=== PATIENT | female | born 1965 | race African-American/Black ===

== ENCOUNTER 2016-12-30 05:54 | Emergency (ER) | payer OTHER ==
[2016-12-30 06:36] LABS: ALT (SGPT) 13 U/L (8-55); AST (SGOT) 15 U/L (5-34); Alkaline Phosphatase 62 U/L (40-150); Anion Gap 14 mmol/L (10-20); BUN (Urea Nitrogen) 9 mg/dL (7.0-18.7); Bilirubin, Total 0.7 mg/dL (0.2-1.2); CK (CPK) 92 U/L (29-168); Calc. Creatinine Clearance 0 mL/min (70-130); Calcium 9.3 mg/dL (7.8-10.44); Carbon Dioxide 26 mmol/L (22-29); Chloride 104 mmol/L (98-107); Estimated GFR-MDRD Greater than 90; Globulin 3.5 g/dL (2.4-3.5); Protein, Total 7.5 g/dL (6.0-8.3)
[2016-12-30 06:37] LABS: Band 1 % (5-11); Hematocrit 43.2 % (36.0-47.0); Neutrophil 60 % (42-75); Reactive Lymphocytes 7 % (0-10); Red Blood Cell (RBC) Count 4.74 mill/uL (4.20-5.40); Troponin I Less than 0.010 ng/mL (< 0.028); White Blood Cell (WBC) Count 10.9 thou/uL (4.8-10.8)
[2016-12-30] MEDS ORDERED: Fentanyl 100 MCG/2 ML VIAL ONE (06:37)
--- NOTE | 2016-12-30 07:36 | ULT ---
EXAM: LEFT UPPER EXTREMITY VENOUS ULTRASOUND: HISTORY: Pain. Swelling. COMPARISON: None. TECHNIQUE: Mccabe scale, color flow, Doppler imaging with spectral waveform analysis performed. FINDINGS: There is patency and flow in the internal jugular vein, subclavian vein. There is compressibility, patency, and flow I the axillary vein, cephalic vein, basilic vein, and brachial vein. There is als o compressibility of the radial and ulnar vein. IMPRESSION: No evidence of thrombus of the left upper extremity deep venous system. POS: [facility]
--- NOTE | 2016-12-30 07:54 | RAD ---
SINGLE VIEW OF THE CHEST: COMPARISON: 05/12/15. HISTORY: Left arm pain and tingling. FINDINGS: Single view of the chest shows a normal sized cardiomediastinal silhouette. There is no evidence of consolidation, mass, or pleural effusion. The bones are unremarkable. IMPRESSION: No evidence of acute cardiopulmonary disease. POS: [facility]
[2016-12-30] MEDS ORDERED: Ketorolac Tromethamine 30 MG/ML VIAL ONE (08:32)
[2016-12-30 09:39] LABS: Troponin I Less than 0.010 ng/mL (< 0.028)
--- NOTE | 2017-02-12 12:08 | EKG ---
Test Reason : Blood Pressure : / mmHG Vent. Rate : 075 BPM Atrial Rate : 075 BPM P-R Int : 154 ms QRS Dur : 080 ms QT Int : 376 ms P-R-T Axes : 059 -14 -04 degrees QTc Int : 419 ms Normal sinus rhythm Normal ECG Confirmed by MARGOTH STREET MD ([id number]), videotape editor JULIA LUU ([id number]) on 02/12/2017 12:08:35 PM Referred By: Confirmed By:MARGOTH STREET MD
--- NOTE | 2017-02-18 12:01 | EKG ---
Test Reason : Blood Pressure : / mmHG Vent. Rate : 102 BPM Atrial Rate : 102 BPM P-R Int : 142 ms QRS Dur : 086 ms QT Int : 326 ms P-R-T Axes : 037 -08 007 degrees QTc Int : 424 ms Sinus tachycardia with occasional Premature ventricular complexes Otherwise normal ECG Confirmed by CALVIN BELTRE ([id number]), editor school photograph JULIA LUU ([id number]) on 02/18/2017 12:01:07 PM Referred By: Confirmed By:CALVIN BELTRE
== END 2016-12-30 10:09 | disposition home or self-care (01) ==
LOC: SCSER 05:54
DX: R07.9 Chest pain, unspecified (principal); M79.602 Pain in left arm; I10 Essential (primary) hypertension; M48.02 Spinal stenosis, cervical region
CPT/HCPCS: 36415; 71010; 80053; 82553; 84484; 85025; 93005; 96374; 96375; J1885; J3010

== ENCOUNTER 2020-01-21 13:42 | Outpatient (CLI) | payer OTHER ==
--- NOTE | 2020-01-21 14:30 | RAD ---
Exam:3 views right shoulder HISTORY: Pain x1 month COMPARISON: None FINDINGS: Glenohumeral joint space is preserved. No fracture or dislocation. Acromioclavicular and coracoclavicular distance is maintained Visually right ribs and lung parenchyma do not demonstrate any acute abnormality. IMPRESSION: No dislocation or fracture.
== END 2020-01-21 13:43 | disposition home or self-care (01) ==
LOC: SCSRAD 13:42
PROVIDERS: ATTEND Student in an Organized Health Care Education/Training Program
DX: M25.511 Pain in right shoulder (principal)

== ENCOUNTER 2020-08-01 15:16 | Outpatient (CLI) | payer OTHER | END 2020-08-01 15:17 | disposition home or self-care (01) | LOC: SCSRAD 15:16 | PROVIDERS: ATTEND Student in an Organized Health Care Education/Training Program | DX: R05 Cough (principal) | CPT/HCPCS: 71046 ==

== ENCOUNTER 2022-03-18 13:35 | Outpatient (CLI) | payer OTHER | END 2022-03-18 13:36 | disposition home or self-care (01) | LOC: SCSRAD 13:35 | PROVIDERS: ATTEND Student in an Organized Health Care Education/Training Program | DX: M25.522 Pain in left elbow (principal) ==

== ENCOUNTER 2022-10-01 13:36 | Outpatient (CLI) | payer OTHER ==
[2022-10-01 14:50] LABS: #Basophils 0.1 10x3/uL (0.0-0.2); #Eosinphils 0.1 10x3/uL (0.0-0.5); #Monocytes 0.7 10x3/uL (0.0-1.1); #Neutrophils 4.4 10x3/uL (1.5-8.4); %Basophils 0.7 % (0.0-2.0); %Eosinophils 1.6 % (0.0-6.0); %Lymphocytes 34.2 % (18.0-47.0); %Monocytes 8.7 % (0.0-10.0); %Neutrophils 54.4 % (40.0-75.0); Hematocrit 42.3 % (34.9-44.5); Hemoglobin 13.9 g/dL (12.0-15.5); Mean Corpuscular HGB CONC 32.9 g/dL (32.0-36.0); Mean Corpuscular Hemoglobin 29.4 pg (27.0-33.0); Mean Corpuscular Volume 89.6 fl (81.6-98.3); Mean Platelet Volume 9.4 fl (7.4-10.4); Platelet Count 290 10x3/uL (150-450); RBC Distribution Width 12.8 % (11.5-14.5); Red Blood Cell (RBC) Count 4.72 10x6/uL (3.90-5.03); White Blood Cell (WBC) Count 8.1 10x3/uL (3.5-10.5)
== END 2022-10-01 13:37 | disposition home or self-care (01) ==
LOC: LABBT 13:36
PROVIDERS: ATTEND Orthopaedic Surgery Hand Surgery
DX: Z01.812 Encounter for preprocedural laboratory examination (principal); M67.442 Ganglion, left hand
CPT/HCPCS: 85025

== ENCOUNTER 2022-10-05 07:26 | Day surgery (SDC) | payer OTHER ==
[2022-10-01 14:08] VITALS: BMI 28.6
[2022-10-05] MEDS ORDERED: Bupivacaine PF 0.5% 30 ML VIAL ONE (09:51)
[2022-10-05] MEDS ORDERED: Bacitracin Zinc Ointment 30 gm TUBE ONE (09:51)
[2022-10-05] MEDS ORDERED: fentaNYL PF 100 MCG/2 ML SYRINGE ONE (10:29)
[2022-10-05] MEDS ORDERED: CEFAZOLIN 2 GM VIAL ONE (10:42)
[2022-10-05] MEDS ORDERED: Sodium Chloride 0.9% 100 ML ONE (10:42)
[2022-10-05] MEDS ORDERED: Lidocaine 1% PF 5 ML VIAL ONE (10:55)
[2022-10-05] MEDS ORDERED: PROPOFOL 200 MG/20 ML VIAL ONE (10:55)
[2022-10-05] MEDS ORDERED: Dexamethasone 20 MG/5 ML VIAL ONE (10:55)
[2022-10-05] MEDS ORDERED: Ondansetron PF 4 MG/2 ML Vial ONE (10:55)
[2022-10-05] MEDS ORDERED: Ketorolac Tromethamine 30 MG/ML VIAL ONE (12:34)
== END 2022-10-05 13:23 | disposition home or self-care (01) ==
LOC: SDC 07:26
PROVIDERS: ATTEND Orthopaedic Surgery Hand Surgery
PROC: 01N60ZZ Release Radial Nerve, Open Approach (ICD-10-PCS; principal; 2022-10-05)
PROC: 01N40ZZ Release Ulnar Nerve, Open Approach (ICD-10-PCS; principal; 2022-10-05)
PROC: 0LB80ZZ Excision of Left Hand Tendon, Open Approach (ICD-10-PCS; principal; 2022-10-05)
DX: M67.442 Ganglion, left hand (principal); G56.22 Lesion of ulnar nerve, left upper limb; G56.32 Lesion of radial nerve, left upper limb
CPT/HCPCS: 88304; J1100; J1885; J2405; J2704; J3490; S0020

== ENCOUNTER 2024-02-29 08:09 | Outpatient (CLI) | payer OTHER ==
[2024-02-29 08:50] LABS: #Basophils 0.05 10x3/uL (0.0-0.2); %Basophils 0.6 % (0.0-1.0); %Eosinophils 1.7 % (0.0-10.0); %Lymphocytes 31.3 % (21.0-51.0); %Neutrophils 58.1 % (42.0-75.0); Hemoglobin 13.8 g/dL (12.0-16.0); Mean Corpuscular HGB CONC 32.9 g/dL (32.0-36.0); Mean Corpuscular Volume 91.3 fL (78.0-98.0); Mean Platelet Volume 9.1 fL (7.4-10.4); Platelet Count 261 10x3/uL (130-400); RBC Distribution Width 13.2 % (11.5-14.5)
[2024-02-29 09:12] LABS: Anion Gap 11 mmol/L (10-20); BUN (Urea Nitrogen) 13 mg/dL (9.8-20.1); Calc. Creatinine Clearance 0 mL/min (70-130); Calcium 9.8 mg/dL (7.8-10.44); Carbon Dioxide 29 mmol/L (22-29); Chloride 106 mmol/L (98-107); Estimated GFR 104; Glucose 106 mg/dL (70-105); Sodium 142 mmol/L (136-145)
== END 2024-02-29 08:10 | disposition home or self-care (01) ==
LOC: LABBT 08:09
PROVIDERS: ATTEND Surgery
DX: Z01.818 Encounter for other preprocedural examination (principal); K43.9 Ventral hernia without obstruction or gangrene; R10.31 Right lower quadrant pain
CPT/HCPCS: 80048; 85025; 93005; 93010

== ENCOUNTER 2024-03-19 15:17 | Outpatient (CLI) | payer OTHER | END 2024-03-19 15:18 | disposition home or self-care (01) | LOC: ULT 15:17 | DX: M79.89 Other specified soft tissue disorders (principal) ==

== ENCOUNTER 2025-02-07 08:41 | Outpatient (CLI) | payer OTHER | END 2025-02-07 08:42 | disposition home or self-care (01) | LOC: SCSRAD 08:41 | PROVIDERS: ATTEND Nurse Practitioner Family | DX: S89.91XA Unspecified injury of right lower leg, initial encounter (principal); M17.11 Unilateral primary osteoarthritis, right knee ==